=== PATIENT | male | born 1980 | race American Indian/Alaskan Native ===

== ENCOUNTER 2019-03-21 10:38 | Outpatient (CLI) | payer OTHER ==
[2019-03-21] MEDS ORDERED: XYLOCAINE 1% 20 mL ONE (11:58)
--- NOTE | 2019-03-21 14:21 | Fluoroscopy Report ---
FLUOROSCOPY RIGHT SHOULDER ARTHROGRAM HISTORY: Complete rotator cuff tear or rupture of right shoulder, right shoulder pain, patient descri bes a clicking filling in the shoulder. DESCRIPTION OF PROCEDURE: Informed consent was obtained. A timeout was performed. Sterile technique w as utilized. Skin anesthesia was accomplished with 1% lidocaine. Using fluoroscopy guidance, a 22-gauge spinal needle was advanced into the right glenohumeral joint v ia the rotator calf interval. Approximately 15 cc of a solution containing 5 cc of Omnipaque 180, 15 cc of sterile saline and 0.2 cc of MultiHance was injected under fluoroscopic observation. There is c omplete filling of the joint capsule. No obvious extravasation is identified on fluoroscopy to sugges t a full-thickness rotator cuff tear. The patient tolerated the procedure with minimal discomfort. The patient was sent to the MRI suite fo r MR right shoulder arthrogram in stable condition. IMPRESSION: Successful fluoroscopy guided right shoulder arthrogram for MRI arthrogram. No gross rotator cuff tea r is identified. Please await the formal MR right shoulder arthrogram Fluoroscopy time: 1.2 minutes. Fluoroscopic images: 6. Signer Name: Sg Kay Jr, MD Signed: 03/21/2019 2:17 PM Workstation Name: [id number]
--- NOTE | 2019-03-21 14:33 | Short Stay Summary ---
Short Stay Documentation Date of service: 03/21/19 - History Principal diagnosis: right shoulder pain Past Surgical History: Other (right rotator cuff repair) - Physical exam General appearance: no acute distress Extremities: no ischemia, pulses intact, No edema - Brief post op/procedure progress note Date of procedure: 03/21/19 Pre-op diagnosis: right shoulder pain, RTC tear Post-op diagnosis: same Procedure: flouro guided right shoulder arthrogram for MR Anesthesia: local Findings: no obvious RCT Surgeon: DAISY JAY Estimated blood loss: none Pathology: none Condition: stable - Hospital course Hospital course: uneventful - Disposition Condition at discharge: Good Disposition: DC-01 TO HOME OR SELFCARE Short Stay Discharge Plan Follow up with: MD [facility] [Other] - 7 Days
--- NOTE | 2019-03-21 15:11 | Magnetic Resonance Report ---
MR arthrogram right shoulder HISTORY: M75.121)Complete rotator cuff tear or rupture of right shoulder,. TECHNIQUE: Please refer to the arthrogram report from this same date for contrast details. COMPARISON: Arthrogram from today FINDINGS: There is old postoperative change in the shoulder with evidence of prior cuff repair. Ther e is no acute osseous abnormality or significant degenerative change. There is partial re-tearing of the anterior fibers of the supraspinatus tendon at the footplate and c ritical zone with contrast extravasation into the subacromial/subdeltoid bursa and mild retraction. T here is also a delaminating tear component originating in the anterior fibers of the infraspinatus te ndon at the critical zone and extending posteriorly/centrally to the level of the myotendinous juncti on. Remaining tendons of the rotator cuff are intact. Biceps tendon is intact. IMPRESSION: Postoperative change in the shoulder with re-tearing of the supraspinatus tendon anterio rly and also a delaminating tear involving the infraspinatus tendon. Signer Name: Tom Payton MD Signed: 03/21/2019 3:07 PM Workstation Name: [id number]
== END 2019-03-21 10:39 | disposition home or self-care (01) ==
LOC: MRI 10:38
PROVIDERS: ATTEND Orthopaedic Surgery Sports Medicine
DX: M75.121 Complete rotator cuff tear or rupture of right shoulder, not specified as traumatic (principal)
CPT/HCPCS: 23350; 73040; 73222; Q9965